=== PATIENT | female | born 1985 | race Asian ===

== ENCOUNTER 2017-02-09 11:15 | Observation (INO) | payer SELFPAY ==
[~2017-02-09] VITALS: Ht 162.6 cm; Wt 72.1 kg
[2017-02-09] MEDS ORDERED: BETAMETH ACET/BETAMETH NA PH 30 MG/5 ML VIAL IM SCH (11:25)
[2017-02-09] MEDS ORDERED: TERBUTALINE 1 MG/ML VIAL SUBQ ONE (11:46)
[2017-02-09] MEDS ORDERED: BETAMETH ACET/BETAMETH NA PH 30 MG/5 ML VIAL IM ONE (11:46)
[2017-02-09] MEDS: TERBUTALINE 1 MG/ML VIAL SUBQ SCH ×2 (12:44→12:48)
== END 2017-02-09 16:25 | disposition home or self-care (01) ==
LOC: MLD 11:15
PROVIDERS: ADMIT Obstetrics & Gynecology; ATTEND Obstetrics & Gynecology
DX: O26.893 Other specified pregnancy related conditions, third trimester (principal); R10.9 Unspecified abdominal pain; Z3A.34 34 weeks gestation of pregnancy
CPT/HCPCS: 59025; 96372; G0378; G0379; J0702; J3105

== ENCOUNTER 2017-02-12 14:20 | Inpatient (IN) | payer SELFPAY ==
[~2017-02-12] VITALS: Ht 160 cm; Wt 63.5 kg
[2017-02-12] MEDS ORDERED: TERBUTALINE 1 MG/ML VIAL SUBQ ONE (14:22)
[2017-02-12] MEDS ORDERED: LACTATED RINGERS 1,000 ML IV SCH (14:24)
[2017-02-12 14:33] VITALS: BP 130/69
[2017-02-12] MEDS ORDERED: TERBUTALINE 1 MG/ML VIAL SUBQ SCH (14:50)
[2017-02-12] MEDS ORDERED: PREN-546 PO (15:00)
[2017-02-12 15:05] LABS: HEMOGLOBIN 12.7 g/dL (12.0-16.0); MEAN CORPUSCULAR HEMOGLOBIN 31 pg (27-31); MEAN CORPUSCULAR HGB CONC 34 g/dL (33-37); MEAN CORPUSCULAR VOLUME 91 fL (80-94); PLATELET COUNT (AUTO) 280 K/uL (140-450); RED BLOOD CELL COUNT(AUTO) 4.07 MIL/uL (4.20-5.40); RED CELL DISTRIBUTION WIDTH 13.1 % (11.6-13.7)
[2017-02-12] MEDS ORDERED: TRIAMCINOLONE 40 MG/ML 5ML VIAL ONE (15:06)
[2017-02-12] MEDS ORDERED: METHYLERGONOVINE 0.2 MG/ML AMP ONE (15:07)
[2017-02-12] MEDS ORDERED: OXYTOCIN 10 UNITS/ML VIAL ONE (15:07)
[2017-02-12] MEDS ORDERED: MIDAZOLAM 2 MG/2 ML VIAL ONE (15:10)
[2017-02-12] MEDS ORDERED: KETAMINE 500 MG/5 ML VIAL ONE (15:10)
[2017-02-12] MEDS ORDERED: fentaNYL 0.05 MG/ML VIAL ONE (15:10)
[2017-02-12] MEDS ORDERED: MORPHINE PRES FREE 10 MG/10 ML AMP IV ONE (15:11)
[2017-02-12] MEDS ORDERED: ceFAZolin 1,000 MG VIAL IVP ONE (15:14)
[2017-02-12] MEDS ORDERED: OXYTOCIN 10 UNITS/ML VIAL IM ONE (15:25)
[2017-02-12] MEDS ORDERED: ONDANSETRON 4 MG/2 ML VIAL IVP ONE (15:25)
[2017-02-12] MEDS ORDERED: ePHEDrine 50 MG/ML VIAL IV ONE (15:25)
[2017-02-12] MEDS ORDERED: KETOROLAC 30 MG/ML VIAL IVP PRN (15:40)
[2017-02-12] MEDS ORDERED: diphenhydrAMINE 50 MG/ML VIAL IVP PRN (15:40)
[2017-02-12] MEDS ORDERED: ONDANSETRON 4 MG/2 ML VIAL IVP PRN (15:40)
[2017-02-12] MEDS ORDERED: OXYTOCIN 20 UNITS/LR PREMIX 1,000 ML IV ONE (16:21)
[2017-02-12 16:32] LABS: BAND % (MANUAL) 4 % (0-8); LYMPHOCYTES % (MANUAL) 12 % (20-46); MONOCYTES % (MANUAL) 6 % (5-12); NEUTROPHILS % (MANUAL) 78 (43-65); PLATELET ESTIMATE ADEQUATE
[2017-02-12] MEDS ORDERED: HYDROcodone/APAP 5/325 MG 1 TAB TAB PO PRN (23:05)
[2017-02-12] MEDS ORDERED: oxyCODONE/APAP 5/325 MG 1 TAB TAB PO PRN (23:05)
[2017-02-12] MEDS ORDERED: METHYLERGONOVINE 0.2 MG/ML AMP IM PRN (23:05)
[2017-02-12] MEDS ORDERED: SODIUM PHOSPHATE 118 ML ENEM RC PRN (23:05)
[2017-02-12] MEDS ORDERED: MEASLES, MUMPS, AND RUBELLA 1 VIAL SQVAC PRN (23:05)
[2017-02-13] MEDS: OXYTOCIN 20 UNITS/LR PREMIX 1,000 ML IV SCH ×2 (03:27→13:20)
[2017-02-13] MEDS ORDERED: ceFAZolin 1,000 MG VIAL ONE (06:03)
[2017-02-13 06:58] LABS: HEMATOCRIT 27.9 % (36-48); HEMOGLOBIN 9.4 g/dL (12.0-16.0); MEAN CORPUSCULAR HEMOGLOBIN 31 pg (27-31); MEAN CORPUSCULAR HGB CONC 34 g/dL (33-37); MEAN CORPUSCULAR VOLUME 92 fL (80-94); PLATELET COUNT (AUTO) 201 K/uL (140-450); RED BLOOD CELL COUNT(AUTO) 3.03 MIL/uL (4.20-5.40); RED CELL DISTRIBUTION WIDTH 12.6 % (11.6-13.7); WHITE BLOOD COUNT (AUTO) 16.7 K/uL (4.8-10.8)
[2017-02-13 07:55] LABS: BAND % (MANUAL) 0 % (0-8); BASOPHILS % (MANUAL) 0 % (0-2); EOSINOPHILS % (MANUAL) 0 % (0-4); LYMPHOCYTES % (MANUAL) 12 % (20-46); MONOCYTES % (MANUAL) 4 % (5-12); NEUTROPHILS % (MANUAL) 84 (43-65); PLATELET ESTIMATE ADEQUATE
[2017-02-13] MEDS ORDERED: oxyCODONE/APAP 5/325 MG 1 TAB TAB PO PRN (10:00)
[2017-02-13] MEDS: SIMETHICONE 80 MG TAB.CHEW PO PRN ×2 (13:16→18:44)
[2017-02-13] MEDS ORDERED: DOCUSATE SOD/SENNA 50/8.6 MG 1 TAB PO SCH (21:00)
[2017-02-14] MEDS: SIMETHICONE 80 MG TAB.CHEW PO PRN (09:01)
--- NOTE | 2017-02-14 09:04 | NUR ---
PATIENT HAS BEEN SCREENED AND CATEGORIZED LOW NUTRITION RISK. PATIENT WILL BE SEEN WITHIN 7 DAYS OF ADMISSION. 02/19/[address]
== END 2017-02-15 15:35 | disposition home or self-care (01) | DRG 766 ==
LOC: MLD 14:20 → MFCC 15:15
PROVIDERS: ADMIT Obstetrics & Gynecology; ATTEND Obstetrics & Gynecology
PROC: 10D00Z1 Extraction of Products of Conception, Low, Open Approach (ICD-10-PCS; principal; 2017-02-12 15:00)
DX: O34.211 Maternal care for low transverse scar from previous cesarean delivery (principal); O89.4 Spinal and epidural anesthesia-induced headache during the puerperium; Z37.0 Single live birth; Z3A.35 35 weeks gestation of pregnancy; Z28.21 Immunization not carried out because of patient refusal
CPT/HCPCS: 36415; 85025; 86592; 86886; 86900; 86901; J0690; J2210; J2250; J2270; J2405; J2590; J3010; J3105; J3301; J7060; J7120